=== PATIENT | male | born 1940 | race Caucasian/White ===

== ENCOUNTER → 2018-09-08 09:52 | Outpatient (CLI) | payer MEDICARE ==
--- NOTE | 2018-09-20 13:26 | EC ---
PATIENT:DEMARIO AVILA DATE OF SERVICE: 09/08/18 SEX: M MEDICAL RECORD: [id number] DATE OF : [birth year] [facility] AGE OF PATIENT: 78 ADMISSION DATE: 09/08/18 REFERRING PHYSICIAN: INTERPRETING PHYSICIAN: CHANDLER RUFF MD ECHOCARDIOGRAM REPORT ECHO CHARGES 4 ECHO COMPLETE Date: 09/08/18 CLINICAL DIAGNOSIS: HTN HX OF CAD CABG ECHOCARDIOGRAPHIC MEASUREMENTS (adult normal given) AC root (d.<3.7cm) 5.0 cm LV Septum d (<1.2 cm> 1.2 cm Valve Excursion 1.9 cm LV Septum (systole) 1.3 cm Left Atria (s.<4.0cm> 4.5 cm LVPW d(<1.2cm) 1.5 cm RV (d.<2.3cm) 5.4 cm LVPW (sytole) 1.7 cm LV diastole(<5.6CM) 7.5 cm MV E-F(>70mm/sec) cm LV systole 6.0 cm LVOT Diameter 2.4 cm MV exc.(>10mm) 1.9 cm Est.ejection fraction (50-75%) % DOPPLER: LVIT cm/sec A 56.0 cm/sec E 62.0 cm/sec LA cm/sec RVSP 31 mmHg LVOT 97 cm/sec AOP1/2T 737 m/s Asc. Ao 110 cm/sec RVOT 59 cm/sec RA cm/sec PA 95 cm/sec AV Gradient Peak 4.88 mmHg AV Mean 2.51 mmHg AV Area 4.1 cm MV Gradient Peak 3.10 mmHg MV Mean 0.81 mmHg MV Area cm COMMENTS: Aircraft Servicer: 2 BECKIE VASQUEZ Assembler Faucets: 3 Dr. Stahl TAPE# PACS Pericardial Effusion N DATE OF SERVICE: Adequate 2D, color flow, spectral Doppler, and M-Mode. Borderline LVH. LV internal dimensions are normal. LV appears to be mildly globally hypo. Overall, LV function lower limits of normal, mildly reduced at 45% to 50%. Aortic valve sclerosis without stenosis on Doppler interrogation. Left atrium is dilated at 4.5 cm. Mitral valve shows no prolapse. Mild MR. Right-sided chambers grossly normal. Mild TR. TRANSINT:[id number] Voice Confirmation ID: [id number] DOCUMENT ID: [id number] ECHOCARDIOGRAM REPORT [id number] DEMARIO AVILA,CHANDLER Levy MD at 1326 CC: [id number] DICTATION DATE: 09/20/18 1249 [employer] BUS DRIVER: 09/20/18 1314 DEP CLI 09/08/18 [place] [id number] [place] [id number]
== END | disposition home or self-care (01) ==
LOC: D.HCCARDIO 09:52
DX: I10 Essential (primary) hypertension (principal)

== ENCOUNTER → 2020-03-02 12:05 | Outpatient (CLI) | payer MEDICARE ==
--- NOTE | ~2020-03-02 | EC ---
PATIENT:DEMARIO AVILA DATE OF SERVICE: 03/02/20 SEX: M MEDICAL RECORD: [id number] DATE OF : 36 [facility] AGE OF PATIENT: 80 ADMISSION DATE: 03/02/20 REFERRING PHYSICIAN: INTERPRETING PHYSICIAN: CHANDLER RUFF MD ECHOCARDIOGRAM REPORT ECHO CHARGES 4 ECHO COMPLETE Date: 03/02/20 CLINICAL DIAGNOSIS: CAD/ASSESS EF/MR/TR ECHOCARDIOGRAPHIC MEASUREMENTS (adult normal given) AC root (d.<3.7cm) 4.6 cm LV Septum d (<1.2 cm> 1.0 cm Valve Excursion 1.8 cm LV Septum (systole) 1.4 cm Left Atria (s.<4.0cm> 4.6 cm LVPW d(<1.2cm) 1.4 cm RV (d.<2.3cm) 4.6 cm LVPW (sytole) 1.7 cm LV diastole(<5.6CM) 5.9 cm MV E-F(>70mm/sec) cm LV systole 4.4 cm LVOT Diameter 2.1 cm MV exc.(>10mm) 2.2 cm Est.ejection fraction (50-75%) % DOPPLER: LVIT cm/sec A 54.0 cm/sec E 73.0 cm/sec LA cm/sec RVSP 35 mmHg LVOT 95 cm/sec AOP1/2T m/s Asc. Ao 113 cm/sec RVOT 66 cm/sec RA cm/sec PA 107 cm/sec AV Gradient Peak 5.12 mmHg AV Mean 2.60 mmHg AV Area 2.6 cm MV Gradient Peak 2.17 mmHg MV Mean 0.93 mmHg MV Area cm COMMENTS: Yarn Conditioner: 2 BECKIE VASQUEZ Hog Worker: 3 Dr. Stahl TAPE# PACS Pericardial Effusion N DATE OF SERVICE: Adequate 2D, color-flow imaging, spectral Doppler, and M-Mode LVH is present. LV internal dimensions are mild dilated at 5.9 cm. LV function is preserved. EF is greater than 50%. Aortic valve sclerosis without evidence of stenosis by Doppler interrogation. Mild AI by color flow imaging. Left atrium dilated at 4.6 cm. Mitral valve shows no prolapse. Mild MR. Right-sided chambers are grossly normal. Mild TR. ECHOCARDIOGRAM REPORT [id number] DEMARIO AVILA TRANSINT:[id number] Voice Confirmation ID: [id number] DOCUMENT ID: [id number] CHANDLER RUFF MD CC: [id number] DICTATION DATE: 03/03/20925 EXPLOSIVE ORDNANCE SPECIALIST: 03/03/20 1150 DEP CLI 03/02/20 [place] [id number] [place] [id number]
== END | disposition home or self-care (01) ==
LOC: D.HCCECHO 02-29 13:00
PROVIDERS: ATTEND Internal Medicine Interventional Cardiology
DX: I25.10 Atherosclerotic heart disease of native coronary artery without angina pectoris (principal)